=== PATIENT | female | born 1960 | race Caucasian/White ===

== ENCOUNTER 2019-01-14 16:46 | Emergency (ER) | payer MEDICARE, MEDICAID ==
[2019-01-14 17:00] VITALS: BP 111/71
--- NOTE | 2019-01-14 17:36 | UC ---
Respiratory Complaint HPI - HPI Summary HPI Summary: Per emergency services director: "complaints of right leg pain from hip radiating down leg, denies injury, for past 3 weeks. Has not taken any pain medications." -she doesn't like to take meds, so she hasnt tried NSAIDs or APAP -no loss of b/b/ fxn. doesnt hurt if she sleeps on her side. has pain in rt buttocks + gets soem numbing down rt lateral thigh and rt calf -here w. her fiance -went to chiro and had some relief, but not resolved. -has not had xrays - History of Current Complaint Chief Complaint: UCLowerExtremity Stated Complaint: RT LEG PAIN Time Seen by Provider: 01/14/19 17:25 Hx Last Menstrual Period: 2006 Pain Intensity: 9 - Allergies/Home Medications Allergies/Adverse Reactions: Allergies Allergy/AdvReac Type Severity Reaction Status Date / Time MS Statins [Statins] Allergy Muscle Ache Verified 01/14/19 17:01 PMH/Surg Hx/FS Hx/Imm Hx Previously Healthy: Yes Psychological History: Other - Surgical History Surgical History: Yes Surgery Procedure, Year, and Place: 1 - Family History Known Family History: Negative: Blood Disorder - Social History Alcohol Use: None Substance Use Type: None Smoking Status (MU): Never Smoked Tobacco - Immunization History Most Recent Influenza Vaccination: 02/2015 Review of Systems All Other Systems Reviewed And Are Negative: Yes Constitutional: Positive: Negative. Negative: Fever Skin: Positive: Negative. Negative: Rash Eyes: Positive: Negative ENT: Positive: Negative Respiratory: Positive: Negative Cardiovascular: Positive: Negative Gastrointestinal: Positive: Negative Genitourinary: Positive: Negative Motor: Positive: Decreased ROM Neurovascular: Negative: Decreased Sensation Musculoskeletal: Positive: Decreased ROM Neurological: Positive: Paresthesia Psychological: Positive: Negative Is Patient Immunocompromised?: No Physical Exam Triage Information Reviewed: Yes Appearance: Well-Appearing, No Pain Distress, Well-Nourished - very pleasant Vital Signs: Initial Vital Signs Temp 99.0 F 01/14/19 16:57 Pulse 71 01/14/19 16:57 Resp 16 01/14/19 16:57 BP 111/71 01/14/19 16:57 Pulse Ox 100 01/14/19 16:57 Vital Signs Reviewed: Yes Eye Exam: Normal Neck exam: Normal Respiratory Exam: Normal Respiratory: Positive: Chest non-tender, Lungs clear, Normal breath sounds, No respiratory distress, No accessory muscle use Cardiovascular Exam: Normal Cardiovascular: Positive: RRR Abdominal Exam: Normal Abdomen Description: Positive: Soft Musculoskeletal: Positive: Strength Intact, ROM Limited @ - Limited flexion/ab & adduction of rt hip comapred to left. neg SLR b/l. 5/5 strebngth. + 2 patella equal b/l Neurological Exam: Normal Psychological Exam: Normal Skin Exam: Normal Skin: Positive: Rashes Respiratory Course/Dx - Course Course Of Treatment: Xray L/S spine today: "IMPRESSION: 1. No fracture or traumatic malalignment of the lumbar spine by radiograph. 2. Moderate facet arthropathy lower lumbar spine. 3. Large colonic stool volume. 4. Several distended gaseous loops of bowel and stomach. Gas does extend to the rectum however, if there is any concern for obstruction a dedicated KUB or CT should be considered." -Dr Reyes called to ask abouit abd pain. she has none. constipation is her baseline. she has been told to take miralax before she recalls upon conversation but has not taken it. she is willing to try it. she understands to f/u w/ PCP regarding this and agreeable. - Differential Dx/Diagnosis Differential Diagnosis/HQI/PQRI: Other - LBP Provider Diagnosis: Right-sided low back pain with sciatica Discharge - Sign-Out/Discharge Documenting (check all that apply): Patient Departure All imaging exams completed and their final reports reviewed: No - Discharge Plan Condition: Stable Disposition: HOME Patient Education Materials: Lumbar Radiculopathy (ED) Referrals: Angel Ramos MD [Primary Care Provider] - 1 Week Additional Instructions: There are no fractures of your spine, but there are some arthritic changes that can be normal in your age. We have given you a prescription for PT that will likely be very helpful. They will safely help you get back into an exercise program. -You can take ibuprofen 400-600mgs every 8 hrs as needed for about 10 days for pain. There is a significant amount of stool noted in your colon which your report constipation is a chronic issue for you. If you develop abdominal pain or constipation issues worsen, you should be evaluated further with possible CT scan of your abdomen/pelvis as we discussed. Taking miralax OTC can be very helpful for constipation. - Billing Disposition and Condition Condition: STABLE Disposition: Home
== END 2019-01-14 18:45 | disposition home or self-care (01) ==
LOC: UCCORT 16:46
DX: M54.41 Lumbago with sciatica, right side (principal)
CPT/HCPCS: 72110; 99212; G0463